=== PATIENT | male | born 1955 | race Caucasian/White ===

== ENCOUNTER 2022-09-11 21:41 | Inpatient (IN) | payer MEDICARE ==
[~2022-09-11] VITALS: Ht 180.3 cm; Wt 88.9 kg
[2022-09-11] MEDS ORDERED: QUETIAPINE FUMA25 MG PO (22:13)
[2022-09-11] MEDS ORDERED: BUSPIRONE HCL7.5 MG PO (22:13)
[2022-09-11] MEDS ORDERED: ATIVAN0.5 MG PO (22:14)
[2022-09-11] MEDS ORDERED: SEROQUEL25 MG PO (22:14)
[2022-09-11] MEDS ORDERED: LAMICTAL25 MG PO (22:14)
[2022-09-12] MEDS ORDERED: VITAMIN B-121000 MCG PO (14:45)
[2022-09-12] MEDS ORDERED: VITAMIN D325 MCG PO (14:45)
--- NOTE | 2022-09-12 21:49 | EKG ---
[facility] [address] [place], [place] [address] Signed Sinus tachycardia Otherwise normal ECG No previous ECGs available Confirmed by NIKKI FRANCO MD ([id number] on 09/12/2022 9:49:23 PM Electronically Signed By: NIKKI FRANCO MD 09/12/22 2149 PATIENT NAME: DAR COLVIN Electrocardiogram DATE OF : 51 PHYSICIAN: NIKKI FRANCO MD REPORT #: [id number] REPORT IS CONFIDENTIAL AND NOT TO BE RELEASED WITHOUT AUTHORIZATION
[2022-09-14] MEDS ORDERED: AMOX TR-K CLV1 EAC1 PO (09:00)
[2022-09-14] MEDS ORDERED: MIRTAZAPINE15 MG PO (09:00)
== END 2022-09-14 09:50 | disposition home or self-care (01) | DRG 917 ==
LOC: ED 21:41 → MS 23:47 → ED 09-12 00:06 → MS 09-14 09:50
PROVIDERS: ADMIT Internal Medicine; ATTEND Internal Medicine
DX: T43.591A Poisoning by other antipsychotics and neuroleptics, accidental (unintentional), initial encounter (principal); G93.41 Metabolic encephalopathy; J13 Pneumonia due to Streptococcus pneumoniae; T42.6X1A Poisoning by other antiepileptic and sedative-hypnotic drugs, accidental (unintentional), initial encounter; Z20.822 Contact with and (suspected) exposure to COVID-19; G47.00 Insomnia, unspecified; F41.9 Anxiety disorder, unspecified; Z79.899 Other long term (current) drug therapy; X58.XXXA Exposure to other specified factors, initial encounter
CPT/HCPCS: 36415; 70450; 70496; 70498; 71045; 80048; 80053; 83605; 83735; 84425; 84484; 85025; 85610; 85730; 87040; 87186; 87502; 93005; 93010; 99285-25; A9270; C9803; J0456; J0696; J1650; J3411; J3480; Q9967; U0003

== ENCOUNTER → 2022-09-26 | Emergency (ER) | payer MEDICARE ==
[~2022-09-26] VITALS: Ht 180.3 cm; Wt 88.5 kg
[~2022-09-26] MED LIST: AMOX TR-K CLV1 EAC1 PO; ATIVAN0.5 MG PO; BUSPIRONE HCL7.5 MG PO; LAMICTAL25 MG PO; MIRTAZAPINE15 MG PO; QUETIAPINE FUMA25 MG PO; SEROQUEL25 MG PO; VITAMIN B-121000 MCG PO; VITAMIN D325 MCG PO
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
== END ==
LOC: ED 11:09
DX: S06.30AA Unspecified focal traumatic brain injury with loss of consciousness status unknown, initial encounter (principal); S01.83XA Puncture wound without foreign body of other part of head, initial encounter; F41.9 Anxiety disorder, unspecified; Y92.002 Bathroom of unspecified non-institutional (private) residence as the place of occurrence of the external cause
CPT/HCPCS: 31500; 36415; 51702; 70250; 70450; 71045; 80053; 85025; 86850; 86900; 86901; 87502; 94002; 94799; 99285-25; G0480; J3010; U0003